=== PATIENT | female | born 1960 | race Caucasian/White ===

== ENCOUNTER 2018-01-25 10:39 | Emergency (ER) | payer MEDICARE ==
[2018-01-25] MEDS ORDERED: METOCLOPRAMIDE HCL INJ/PF 10 MG/2 ML SDV IV ONE (11:07)
[2018-01-25] MEDS ORDERED: DIPHENHYDRAMINE HCL 50 MG/ML VIAL IV ONE (11:08)
--- NOTE | 2018-01-25 11:12 | ER Document Report ---
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 Pt reports that it feels as if she has sinus pressure and also complains of ear pain but she denies any nasal or sinus congestion or discharge. Pt describes her pain as a throbbing pain. She denies any fever but reports that she typically "runs a low temperature" and states that she did not have a fever in the past when she had complications with her LOAN EXAMINER shunt about 2 years ago. I have greeted and performed a rapid initial assessment of the patient. A comprehensive ED assessment and evaluation of the patient, analysis of test results, and completion of the medical decision making process will be conducted by additional ED providers. Physical Exam: General: Alert, appears well. HEENT: Normocephalic. Atraumatic. TTP to frontal and maxillary sinuses. Neck: Supple. Cardiovascular: RRR Respiratory: Coughing during exam. Lungs are clear. Abdominal: No distension. Extremities: Moves all four extremities. Neurological: Normal cognition. AAOx4. Normal speech. Psychological: Normal affect. Normal Mood. Skin: Warm. Dry. Normal color. TRAVEL OUTSIDE OF THE [place] IN LAST 30 DAYS: No - Related Data Allergies/Adverse Reactions: promethazine [From Phenergan] Allergy (Verified 01/25/18 10:42) diphenhydramine [From Benadryl] Adverse Reaction (Verified 01/25/18 12:36) Physical Exam - Vital signs Vitals: Temp Pulse Resp BP Pulse Ox 98.0 F 100 18 109/71 97 01/25/18 10:47 01/25/18 10:47 01/25/18 10:47 01/25/18 10:47 01/25/18 10:47 Course - Vital Signs Vital signs: Temp Pulse Resp BP Pulse Ox 98.3 F 88 18 138/87 H 95 01/25/18 14:30 01/25/18 14:30 01/25/18 14:30 01/25/18 14:30 01/25/18 14:30 - Laboratory Result Diagrams: 01/25/18 11:38 01/25/18 11:38 Laboratory results interpreted by me: 01/25/18 11:38 Sodium 147.2 H Chloride 108 H Glucose 126 H Doctor's Discharge - Discharge Clinical Impression: Headache, Sinusitis Condition: Good Disposition: HOME, SELF-CARE Instructions: Antinausea Medication ([facility]), Headache ([facility]), Pain Medication Injection ([facility]), Toradol Injection ([facility]) Additional Instructions: Follow up with your physician tomorrow for further care or return to the ED IMMEDIATELY if symptoms worsen or new concerns occur. If you cannot afford to follow up with your primary care physician a list of low cost clinics have been provided at the end of your discharge papers as well. Prescriptions: Amox Tr/Potassium Clavulanate [Augmentin 875-125 Tablet] 1 tab PO BID 10 Days # 20 tablet Scribe Documentation - Scribe Written by Radha:: Radha Thompson 01/25/18 [id number] acting as scribe for :: [employer]
[2018-01-25 11:54] LABS: ABSOLUTE EOSINOPHILS # (AUTO) 0.2 10^3/uL (0.0-0.6); ABSOLUTE LYMPHOCYTES (AUTO) 1.1 10^3/uL (0.5-4.7); ABSOLUTE MONOCYTES (AUTO) 0.2 10^3/uL (0.1-1.4); BASOPHILS % (AUTO) 0.5 % (0-2); EOSINOPHILS % (AUTO) 2.3 % (0-6); HEMATOCRIT 41.5 % (36.0-47.0); MEAN CORPUSCULAR HEMOGLOBIN 27.9 pg (27.0-33.4); MEAN CORPUSCULAR HGB CONC 33.9 g/dL (32.0-36.0); MEAN CORPUSCULAR VOLUME 82 fl (80-97); MONOCYTES % (AUTO) 3.4 % (3-13); PLATELET COUNT 151 10^3/uL (150-450); RED BLOOD COUNT 5.04 10^6/uL (3.72-5.28); RED CELL DISTRIBUTION WIDTH 13.7 % (11.5-14.0); SEGMENTED NEUTROPHILS % (AUTO) 76.8 % (42-78); TOTAL CELLS COUNTED % (AUTO) 100 %; WHITE BLOOD COUNT 6.6 10^3/uL (4.0-10.5)
[2018-01-25] MEDS ORDERED: METOCLOPRAMIDE HCL INJ/PF 10 MG/2 ML SDV IM ONE (11:55)
[2018-01-25] MEDS ORDERED: DIPHENHYDRAMINE HCL 50 MG/ML VIAL IM ONE (11:56)
--- NOTE | 2018-01-25 12:16 | RADIOLOGY REPORT (SQ) ---
EXAM DESCRIPTION: SHUNTOGRAM SERIES COMPLETED DATE/TIME: 01/25/2018 12:07 pm COMPARISON: CT brain 01/25/2018 TECHNIQUE: AP skull, cervical spine, and chest films LIMITATIONS: None. FINDINGS: AP skull and cervical films demonstrate right-sided ventriculopleural shunt tubing which i s intact. AP chest film shows that the shunt tubing enters the pleural space on the right. No pneumothorax. N o acute infiltrates. No pleural effusion. Cardiac silhouette size, leo unremarkable. IMPRESSION: Intact right-sided ventriculopleural shunt tubing No acute infiltrates TECHNICAL DOCUMENTATION: JOB ID: [id number]- All Rights Reserved REASON FOR STUDY: headache headache neck pain for 1 week Reading location - IP/workstation name: [email or web address]
[2018-01-25 12:17] LABS: ALANINE AMINOTRANSFERASE 23 U/L (9-52); ALBUMIN 4.9 g/dL (3.5-5.0); ALKALINE PHOSPHATASE 88 U/L (38-126); ANION GAP 14 (5-19); ASPARTATE AMINO TRANSFERASE 21 U/L (14-36); BILIRUBIN,DIRECT 0.3 mg/dL (0.0-0.4); BILIRUBIN,TOTAL 0.5 mg/dL (0.2-1.3); BLOOD UREA NITROGEN 12 mg/dL (7-20); CALCIUM 9.6 mg/dL (8.4-10.2); CARBON DIOXIDE 25 mmol/L (22-30); CHLORIDE 108 mmol/L (98-107); GLUCOSE 126 mg/dL (75-110); POTASSIUM 3.8 mmol/L (3.6-5.0); SODIUM 147.2 mmol/L (137-145); TOTAL PROTEIN 7.9 g/dL (6.3-8.2)
--- NOTE | 2018-01-25 12:35 | ER Document Report ---
ED General - General Chief Complaint: Headache Stated Complaint: HEADACHE Time Seen by Provider: 01/25/18 11:07 Mode of Arrival: Ambulatory Notes: Upon my arrival into the room to examine the patient and she is on the phone and refusing to get off. 57 y.o. female with hypertension, hyperlipidemia, asthma and a CLIENT SERVICE AND CONSULTING MANAGER shunt presents to the ED with a frontal and periorbital LARES of onset yesterday. Pt reports that it feels as if it is a sinus pressure and also complains of ear pain. Patient has had nasal drainage, denies congestion. Pt describes her pain as a throbbing pain. She denies any fever but reports that she typically "runs a low temperature" and states that she did not have a fever in the past when she had complications with her CLIENT SERVICE AND CONSULTING MANAGER shunt about 2 years ago. TRAVEL OUTSIDE OF THE [place] IN LAST 30 DAYS: No - HPI Onset: Yesterday Onset/Duration: Constant Quality of pain: Fullness, Throbbing Severity: Moderate Pain Level: 2 Associated symptoms: Nonproductive cough, Headache, Sinus pain/drainage. denies : Chest pain, Fever, Nausea, Vomiting Exacerbated by: Movement Relieved by: Denies Similar symptoms previously: Yes Recently seen / treated by doctor: Yes - Related Data Allergies/Adverse Reactions: promethazine [From Phenergan] Allergy (Verified 01/25/18 10:42) diphenhydramine [From Benadryl] Adverse Reaction (Verified 01/25/18 12:36) Past Medical History - General Information source: Patient - Social History Smoking Status: Never Smoker Chew tobacco use (# tins/day): No Frequency of alcohol use: None Drug Abuse: None Family History: Reviewed & Not Pertinent Patient has suicidal ideation: No Patient has homicidal ideation: No - Past Medical History Cardiac Medical History: Reports: Hx Hypercholesterolemia, Hx Hypertension Pulmonary Medical History: Reports: Hx Asthma Renal/ Medical History: Denies: Hx Peritoneal Dialysis Past Surgical History: Reports: Hx Hysterectomy, Hx Orthopedic Surgery - left knee Review of Systems - Review of Systems Notes: REVIEW OF SYSTEMS: CONSTITUTIONAL : Denies fever, chills, or sweats. Denies recent illness. Denies weight loss, recent hospitalizations. EENT: Denies visual changes, eye pain. Denies sore throat, oral lesions, difficulty swallowing. CARDIOVASCULAR: Denies chest pain. Denies palpitations. Denies lower extremity edema. RESPIRATORY: Denies cough, cold, or chest congestion. Denies shortness of breath, wheezing. GASTROINTESTINAL: Denies abdominal pain or distention. Denies nausea, vomiting , or diarrhea. Denies blood in vomitus, stools, or per rectum. Denies black, tarry stools. Denies constipation. GENITOURINARY: Denies difficulty urinating, painful urination, frequency, blood in urine, or vaginal discharge. MUSCULOSKELETAL: Denies back or neck pain or stiffness. Denies joint pain or swelling. SKIN: Denies rash, lesions or sores. HEMATOLOGIC : Denies easy bruising or bleeding. LYMPHATIC: Denies swollen glands. NEUROLOGICAL: Denies confusion or altered mental status. Denies passing out or loss of consciousness. Denies dizziness or lightheadedness. Denies weakness or paralysis. Denies problems difficulty with ambulation, slurred speech. Denies sensory loss, numbness, or tingling. Denies seizures. PSYCHIATRIC: Denies anxiety or stress. Denies depression, suicidal ideation, or homicidal ideation. Denies visual or auditory hallucinations. Physical Exam - Vital signs Vitals: Temp Pulse Resp BP Pulse Ox 98.0 F 100 18 109/71 97 01/25/18 10:47 01/25/18 10:47 01/25/18 10:47 01/25/18 10:47 01/25/18 10:47 - Notes Notes: PHYSICAL EXAMINATION: GENERAL: Well-appearing, well-nourished and in no acute distress. HEAD: Atraumatic, normocephalic. EYES: Pupils equal round and reactive to light, extraocular movements intact, conjunctiva are normal. ENT: Nares patent, oropharynx clear without exudates. Moist mucous membranes. NECK: Normal range of motion, supple without lymphadenopathy LUNGS: Breath sounds clear to auscultation bilaterally and equal. No wheezes rales or rhonchi. HEART: Regular rate and rhythm without murmurs ABDOMEN: Soft, nontender, nondistended abdomen. No guarding, no rebound. No masses appreciated. Female : deferred Musculoskeletal: Normal range of motion, no pitting or edema. No cyanosis. NEUROLOGICAL: Cranial nerves grossly intact. Normal speech, normal gait. Normal sensory, motor exams PSYCH: Normal mood, normal affect. SKIN: Warm, Dry, normal turgor, no rashes or lesions noted. Course - Re-evaluation Re-evalutation: 01/25/18 13:11 Laboratory 01/25/18 01/25/18 11:38 11:38 WBC 6.6 RBC 5.04 Hgb 14.0 Hct 41.5 MCV 82 MCH 27.9 MCHC 33.9 RDW 13.7 Plt Count 151 Seg Neutrophils % 76.8 Lymphocytes % 17.0 Monocytes % 3.4 Eosinophils % 2.3 Basophils % 0.5 Absolute Neutrophils 5.0 Absolute Lymphocytes 1.1 Absolute Monocytes 0.2 Absolute Eosinophils 0.2 Absolute Basophils 0.0 Sodium 147.2 H Potassium 3.8 Chloride 108 H Carbon Dioxide 25 Anion Gap 14 BUN 12 Creatinine 0.78 Est GFR ( Amer) > 60 Est GFR (Non-Af Amer) > 60 Glucose 126 H Calcium 9.6 Total Bilirubin 0.5 Direct Bilirubin 0.3 Neonat Total Bilirubin Not Reportable Neonat Direct Bilirubin Not Reportable Neonat Indirect Bili Not Reportable AST 21 ALT 23 Alkaline Phosphatase 88 Total Protein 7.9 Albumin 4.9 Shuntogram 01/25/18 10:45 IMPRESSION: Intact right-sided ventriculopleural shunt tubing No acute infiltrates Head CT 01/25/18 10:51 IMPRESSION: No acute findings EVIDENCE OF ACUTE STROKE: NO. 57-year-old female presents with complaint of headache that started 1 day prior to arrival. Patient was seen by myself upon arrival. Vital signs were reviewed. Patient is afebrile, normotensive and not hypoxic. Patient does not appear toxic or dehydrated. They are in no acute distress. Previous medical records and nursing notes reviewed. CT of the head showed no acute process. Shuntogram showed no acute abnormalities. Patient received Reglan, Toradol, prednisone during her ED course. 01/25/18 13:12 01/25/18 14:08 On reevaluation patient states her headache has improved and is requesting discharge home. Patient provided the opportunity to ask questions, and express concerns. Discharge instructions discussed. Patient is agreeable with discharge home. Return indications explained and discussed with the patient who displays understanding. Patient encouraged to return to the emergency department immediately with any concerns. - Vital Signs Vital signs: Temp Pulse Resp BP Pulse Ox 98.3 F 88 18 138/87 H 95 01/25/18 14:30 01/25/18 14:30 07/04/18 14:30 01/25/18 14:30 01/25/18 14:30 - Laboratory Result Diagrams: 01/25/18 11:38 01/25/18 11:38 Laboratory results interpreted by me: 01/25/18 11:38 Sodium 147.2 H Chloride 108 H Glucose 126 H Discharge - Discharge Clinical Impression: Headache Qualifiers: Headache type: unspecified Headache chronicity pattern: acute headache Intractability: not intractable Qualified Code(s): R51 - Headache Sinusitis Qualifiers: Sinusitis location: frontal Chronicity: acute Recurrence: recurrent Qualified Code(s): J01.11 - Acute recurrent frontal sinusitis Condition: Good Disposition: HOME, SELF-CARE Instructions: Antinausea Medication ([facility]), Headache ([facility]), Pain Medication Injection ([facility]), Toradol Injection ([facility]) Additional Instructions: Follow up with your physician tomorrow for further care or return to the ED IMMEDIATELY if symptoms worsen or new concerns occur. If you cannot afford to follow up with your primary care physician a list of low cost clinics have been provided at the end of your discharge papers as well. Prescriptions: Amox Tr/Potassium Clavulanate [Augmentin 875-125 Tablet] 1 tab PO BID 10 Days # 20 tablet
--- NOTE | 2018-01-25 12:45 | RADIOLOGY REPORT (SQ) ---
EXAM DESCRIPTION: CT HEAD WITHOUT COMPLETED DATE/TIME: 01/25/2018 12:31 pm REASON FOR STUDY: headache, hx of shunt COMPARISON: Plain film shunt series earlier today TECHNIQUE: Axial images acquired through the brain without intravenous contrast. Images reviewed wi th bone, brain and subdural windows. Additional sagittal and coronal reconstructions were generated. Images stored on PACS. All CT scanners at this facility use dose modulation, iterative reconstruction, and/or weight based d osing when appropriate to reduce radiation dose to as low as reasonably achievable (ALARA). [facility]: Dose Right [facility]: CareDose [facility]: Dose Right [facility]: Teradose 4D [facility]: Smart [employer] RADIATION DOSE: CT Rad equipment meets quality standard of care and radiation dose reduction techniq ues were employed. CTDIvol: 53.2 mGy. DLP: 964 mGy-cm. mGy. LIMITATIONS: None. FINDINGS: VENTRICLES: Normal size and contour. The an intraventricular drainage catheter from front al approaches present, the tip of the catheter is near the foramen of Monro. Tubing over the field o f view is intact. CEREBRUM: No masses. No hemorrhage. No midline shift. No evidence for acute infarction. Normal gra y/white matter differentiation. No areas of low density in the white matter. CEREBELLUM: No masses. No hemorrhage. No alteration of density. No evidence for acute infarction. 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 Normal CSF spaces around the cerebellar tonsils and medulla. EXTRAAXIAL SPACES: No fluid collections. No masses. ORBITS AND GLOBE: No intra- or extraconal masses. Normal contour of globe without masses. CALVARIUM: Old occipital craniotomy for decompression of the foramen magnum. PARANASAL SINUSES: No fluid or mucosal thickening. SOFT TISSUES: No mass or hematoma. OTHER: No other significant finding. IMPRESSION: No acute findings EVIDENCE OF ACUTE STROKE: NO. COMMENT: Quality ID # [id number]: Final reports with documentation of one or more dose reduction techniques (e.g., Automated exposure control, adjustment of the mA and/or kV according to patient size, use of iterative reconstruction technique) TECHNICAL DOCUMENTATION: JOB ID: [id number] [employer]- All Rights Reserved Reading location - IP/workstation name: [email or web address]
[2018-01-25] MEDS ORDERED: LORAZEPAM 1 MG TABLET PO ONE (13:08)
[2018-01-25] MEDS ORDERED: KETOROLAC TROMETHAMINE 60 MG/2 ML SDV IM ONE (13:08)
[2018-01-25] MEDS ORDERED: PSEUDOEPHEDRINE HCL 30 MG TABLET PO ONE (13:08)
[2018-01-25] MEDS ORDERED: PREDNISONE 20 MG TABLET PO ONE (13:08)
[2018-01-25 14:33] VITALS: BP 138/87
== END 2018-01-25 14:33 | disposition home or self-care (01) ==
LOC: EDBD → ER 10:39
DX: J01.11 Acute recurrent frontal sinusitis (principal); R51 Headache; H92.09 Otalgia, unspecified ear; J34.89 Other specified disorders of nose and nasal sinuses; I10 Essential (primary) hypertension; J45.909 Unspecified asthma, uncomplicated; Z98.2 Presence of cerebrospinal fluid drainage device; Z88.8 Allergy status to other drugs, medicaments and biological substances
CPT/HCPCS: 99284; 96372; 36415; 85025; 80053; 75809; 70450; J1885; J2765; A9270; J1200; J7512

== ENCOUNTER 2018-12-22 13:05 | Emergency (ER) | payer MEDICARE ==
--- NOTE | 2018-12-22 13:51 | ER Document Report ---
ED Medical Screen (RME) - General Chief Complaint: Blood Pressure Problem Stated Complaint: HEADACHE, SYDNEEKEY Time Seen by Provider: 12/22/18 13:48 TRAVEL OUTSIDE OF THE [place] IN LAST 30 DAYS: No - HPI Notes: 12/22/18 13:49 Patient is a 58-year-old female with a history of shunt in her head who presents complaining of headache, dizziness, hot flashes over the past couple days. Patient states that she is very fidgety right now as well. She is still eating and drinking without difficulty. She is urinating normally. Denies any fever, head injury, neck pain, changes in vision/speech/mentation/hearing, URI, sore throat, chest pain, palpitations, syncope, cough, shortness of breath, wheeze, dyspnea, abdominal pain, nausea/vomiting/diarrhea, urinary retention, dysuria, hematuria, loss of control of bowel or bladder, numbness/tingling, saddle anesthesia, muscle paralysis/weakness, or rash. I have treated and performed a rapid initial assessment of this patient. A comprehensive ED assessment and evaluation of the patient, analysis of test results and completion of medical decision making process will be conducted by additional ED providers. PHYSICAL EXAMINATION: GENERAL: Well-appearing, well-nourished and in no acute distress. A&Ox4. Answers questions appropriately. HEAD: Atraumatic, normocephalic. Non-tender. EYES: Pupils equal round and reactive to light, extraocular movements intact, sclera anicteric, conjunctiva are normal. No nystagmus. NECK: Normal range of motion, supple without lymphadenopathy. No rigidity/meningismus. No midline tenderness. LUNGS: Breath sounds clear to auscultation bilaterally and equal. No wheezes rales or rhonchi. HEART: Regular rate and rhythm without murmurs, rubs, gallops. Musculoskeletal: Ext's b/l: FROM to passive/active. Strength 5+/5. No deficits noted. No bony tenderness of extremities. Extremities: No cyanosis, clubbing, or edema b/l. Peripheral pulses 2+. Capillary refill less than 2 seconds. NEUROLOGICAL: NIH 0. GCS 15. Cranial nerves grossly intact. Normal speech, normal gait. Normal sensory, motor exams. Reflexes 2+ b/l. ZENAIDA's negative. Pronator drift negative. Heel/serrano, finger/nose wnl. PSYCH: anxious SKIN: Warm, Dry, normal turgor, no rashes or lesions noted. - Related Data Allergies/Adverse Reactions: promethazine [From Phenergan] Allergy (Verified 12/22/18 13:09) diphenhydramine [From Benadryl] Adverse Reaction (Verified 12/22/18 13:09) Past Medical History - Past Medical History Cardiac Medical History: Reports: Hx Hypercholesterolemia, Hx Hypertension Pulmonary Medical History: Reports: Hx Asthma Renal/ Medical History: Denies: Hx Peritoneal Dialysis Past Surgical History: Reports: Hx Hysterectomy, Hx Orthopedic Surgery - left knee Physical Exam - Vital signs Vitals: Temp Pulse Resp BP Pulse Ox 98.3 F 110 H 16 143/95 H 95 12/22/18 13:25 12/22/18 13:25 12/22/18 13:25 12/22/18 13:25 12/22/18 13:25 Course - Vital Signs Vital signs: Temp Pulse Resp BP Pulse Ox 98.3 F 110 H 16 143/95 H 95 12/22/18 13:25 12/22/18 13:25 12/22/18 13:25 12/22/18 13:25 12/22/18 13:25
--- NOTE | 2018-12-22 14:19 | RADIOLOGY REPORT (SQ) ---
EXAM DESCRIPTION: CT HEAD WITHOUT COMPLETED DATE/TIME: 12/22/2018 2:05 pm REASON FOR STUDY: LARES, dizziness COMPARISON: 01/25/2018 TECHNIQUE: Axial images acquired through the brain without intravenous contrast. Images reviewed wi th bone, brain and subdural windows. Additional sagittal and coronal reconstructions were generated. Images stored on PACS. All CT scanners at this facility use dose modulation, iterative reconstruction, and/or weight based d osing when appropriate to reduce radiation dose to as low as reasonably achievable (ALARA). [facility]: Dose Right [facility]: CareDose [facility]: Dose Right [facility]: Teradose 4D [facility]: Smart [employer] RADIATION DOSE: CT Rad equipment meets quality standard of care and radiation dose reduction techniq ues were employed. CTDIvol: 53.2 mGy. DLP: 964 mGy-cm. mGy. LIMITATIONS: None. FINDINGS: VENTRICLES: Normal size and contour. Stable position and appearance of a right frontopari etal approach shunt terminating in the region of the foramen of Monro. The visualized shunt tubing a ppears to be intact. CEREBRUM: No masses. No hemorrhage. No midline shift. No evidence for acute infarction. Normal gra y/white matter differentiation. No areas of low density in the white matter. CEREBELLUM: No masses. No hemorrhage. No alteration of density. No evidence for acute infarction. EXTRAAXIAL SPACES: No fluid collections. No masses. ORBITS AND GLOBE: No intra- or extraconal masses. Normal contour of globe without masses. CALVARIUM: No fracture. Stable surgical changes. PARANASAL SINUSES: No fluid or mucosal thickening. SOFT TISSUES: No mass or hematoma. OTHER: No other significant finding. IMPRESSION: Stable position and appearance of a ventricular shunt without evidence of complication. Stable CT appearance of the brain. EVIDENCE OF ACUTE STROKE: NO. COMMENT: Quality ID # [id number]: Final reports with documentation of one or more dose reduction techniques (e.g., Automated exposure control, adjustment of the mA and/or kV according to patient size, use of iterative reconstruction technique) TECHNICAL DOCUMENTATION: JOB ID: [id number] [employer]- All Rights Reserved Reading location - IP/workstation name: [email or web address]
--- NOTE | 2018-12-22 14:28 | RADIOLOGY REPORT (SQ) ---
EXAM DESCRIPTION: SHUNTOGRAM SERIES COMPLETED DATE/TIME: 12/22/2018 2:15 pm REASON FOR STUDY: LARES, dizziness COMPARISON: 01/25/2018 TECHNIQUE: Frontal radiographs of the calvarium, cervical spine, chest, and abdomen were obtained. LIMITATIONS: None. FINDINGS: Images demonstrate a right-sided ventriculopleural shunt catheter demonstrating stable pos ition and appearance. There is no evidence of shunt discontinuity. No depressed skull fractures are demonstrated. Degenerative changes are seen of the cervical spine. The lungs appear clear without pneumothorax or large pleural effusion. The cardiomediastinal silhou ette appears normal. Gas and stool are seen throughout multiple nondilated loops of bowel without ev idence of obstruction. The visceral in soft tissue shadows appear unremarkable. The remaining bony and soft tissue structures appear normal. IMPRESSION: Right-sided ventriculopleural shunt demonstrating stable position in without evidence of complication. TECHNICAL DOCUMENTATION: JOB ID: [id number] [email or web address]- All Rights Reserved Reading location - IP/workstation name: [email or web address]
[2018-12-22 16:13] LABS: ABSOLUTE EOSINOPHILS # (AUTO) 0.1 10^3/uL (0.0-0.6); ABSOLUTE LYMPHOCYTES (AUTO) 1.1 10^3/uL (0.5-4.7); ABSOLUTE MONOCYTES (AUTO) 0.2 10^3/uL (0.1-1.4); ABSOLUTE NEUT (AUTO) 3.5 10^3/uL (1.7-8.2); BASOPHILS % (AUTO) 0.2 % (0-2); EOSINOPHILS % (AUTO) 2.1 % (0-6); HEMATOCRIT 42.4 % (36.0-47.0); HEMOGLOBIN 14.1 g/dL (12.0-15.5); LYMPHOCYTES % (AUTO) 22.8 % (13-45); MEAN CORPUSCULAR HEMOGLOBIN 28.1 pg (27.0-33.4); MEAN CORPUSCULAR HGB CONC 33.3 g/dL (32.0-36.0); MEAN CORPUSCULAR VOLUME 84 fl (80-97); PLATELET COUNT 145 10^3/uL (150-450); RED BLOOD COUNT 5.03 10^6/uL (3.72-5.28); RED CELL DISTRIBUTION WIDTH 13.8 % (11.5-14.0); SEGMENTED NEUTROPHILS % (AUTO) 70.9 % (42-78); TOTAL CELLS COUNTED % (AUTO) 100 %; WHITE BLOOD COUNT 4.9 10^3/uL (4.0-10.5)
[2018-12-22 16:24] LABS: APPEARANCE,URINE SLIGHTLY-CLOUDY; BILIRUBIN,URINE NEGATIVE (NEGATIVE); COLOR,URINE YELLOW; GLUCOSE, URINE NEGATIVE (NEGATIVE); KETONES,URINE NEGATIVE (NEGATIVE); LEUKOCYTE ESTERASE,URINE SMALL (NEGATIVE); NITRITE,URINE NEGATIVE (NEGATIVE); PROTEIN,URINE NEGATIVE (NEGATIVE); URINE SPECIFIC GRAVITY 1.026; UROBILINOGEN,URINE NEGATIVE mg/dL (<2.0)
[2018-12-22 16:33] LABS: INTERNATIONAL RATION (INR) 0.92; PARTIAL THROMBOPLASTIN TIME 26.7 SEC (23.5-35.8); PROTHROMBIN TIME 12.8 SEC (11.4-15.4)
[2018-12-22 16:34] LABS: ALANINE AMINOTRANSFERASE 21 U/L (9-52); ALBUMIN 4.9 g/dL (3.5-5.0); ALKALINE PHOSPHATASE 87 U/L (38-126); ANION GAP 13 (5-19); ASPARTATE AMINO TRANSFERASE 19 U/L (14-36); BILIRUBIN,DIRECT 0.3 mg/dL (0.0-0.4); BLOOD UREA NITROGEN 15 mg/dL (7-20); CALCIUM 9.5 mg/dL (8.4-10.2); CARBON DIOXIDE 30 mmol/L (22-30); CHLORIDE 106 mmol/L (98-107); GLUCOSE 100 mg/dL (75-110); POTASSIUM 3.9 mmol/L (3.6-5.0); SODIUM 149.3 mmol/L (137-145); TOTAL PROTEIN 7.8 g/dL (6.3-8.2)
[2018-12-22] MEDS ORDERED: BUTALB/ACETAMINOPHEN/CAFFEINE 1 TAB EACH PO ONE (19:33)
--- NOTE | 2018-12-22 19:35 | ER Document Report ---
ED General - General Chief Complaint: Blood Pressure Problem Stated Complaint: HEADACHE, MAURO Time Seen by Provider: 12/22/18 13:48 Primary Care Provider: PAT GONSALVES MD [ACTIVE STAFF] - Follow up in 3-5 days (local primary care. ) Notes: Patient is a 58-year-old female that presents to the emergency department for chief complaint of elevated blood pressure and headaches. Patient states she has been having a headache on and off for the past 3 days, stiff and that her typical headaches, she is had some mild lightheadedness, seems to be worse with walking and improved with lying down. She has a MANAGER LIGHTING shunt, but these headaches do not seem related to her typical headaches. It is mainly at the back of her head. She denies any numbness, tingling or weakness in any extremity, denies any slurred speech, or changes in her vision. Denies any vertiginous symptoms. She denies any nausea, vomiting, chest pain or shortness of breath associated with this. She currently rates her headache as a 3 out of 10 describes as a constant ache. Past Medical History: Hypertension, hyperlipidemia, fibromyalgia Past Surgical History: MANAGER LIGHTING shunt placement and Chiari malformation surgery Social History: Denies tobacco, alcohol or illicit drug use. Family History: Reviewed and noncontributory for presenting illness Allergies: Reviewed, see documented allergy list. REVIEW OF SYSTEMS: Other than noted above, the 12 point review of systems was reviewed with the patient and were negative, all pertinent findings are included in the HPI. PHYSICAL EXAMINATION: Vital signs reviewed, nursing noted reviewed. GENERAL: Well-appearing, well-nourished and in no acute distress. HEAD: Atraumatic, normocephalic. EYES: Eyes appear normal, extraocular movements intact, sclera anicteric, conjunctiva are normal. ENT: nares patent, oropharynx clear without exudates. Moist mucous membranes. NECK: Normal range of motion, supple without lymphadenopathy LUNGS: Breath sounds clear to auscultation bilaterally and equal. No wheezes rales or rhonchi. HEART: Regular rate and rhythm without murmurs ABDOMEN: Soft, nontender, normoactive bowel sounds. No rebound, guarding, or rigidity. No masses appreciated. EXTREMITIES: Nontender, good range of motion, no pitting or edema. NEUROLOGICAL: No focal neurological deficits. Moves all extremities spontaneously Motor and sensory grossly intact on exam. PSYCH: Normal mood, normal affect. SKIN: Warm, Dry, normal turgor, no rashes or lesions noted on exposed skin TRAVEL OUTSIDE OF THE [place] IN LAST 30 DAYS: No - Related Data Allergies/Adverse Reactions: promethazine [From Phenergan] Allergy (Verified 12/22/18 13:09) diphenhydramine [From Benadryl] Adverse Reaction (Verified 12/22/18 13:09) Past Medical History - Social History Smoking Status: Unknown if Ever Smoked Chew tobacco use (# tins/day): No Frequency of alcohol use: None Drug Abuse: None Family History: Reviewed & Not Pertinent Patient has suicidal ideation: No Patient has homicidal ideation: No - Past Medical History Cardiac Medical History: Reports: Hx Hypercholesterolemia, Hx Hypertension Pulmonary Medical History: Reports: Hx Asthma Renal/ Medical History: Denies: Hx Peritoneal Dialysis Past Surgical History: Reports: Hx Hysterectomy, Hx Orthopedic Surgery - left knee Physical Exam - Vital signs Vitals: Temp Pulse Resp BP Pulse Ox 98.3 F 110 H 16 143/95 H 95 12/22/18 13:25 12/22/18 13:25 12/22/18 13:25 12/22/18 13:25 12/22/18 13:25 Course - Re-evaluation Re-evalutation: Patient seen and examined vital signs reviewed. Laboratory data and/or imaging were ordered as appropriate for the patient's presenting symptoms and complaint, with consideration of any critical or life threatening conditions that may be associated with their obtained history and exam as noted above. Patient was treated with Fioricet for her headache, patient did not want any IV medications. Results were reviewed when available and demonstrated normal shunt series, blood work was unremarkable, blood pressure was somewhat elevated, but not significantly. The patient was re-evaluated and was stable, and improved Evaluation was most consistent with headache, nonspecific, lightheadedness, advised follow-up with her primary care physician. Results were discussed with the patient at this point, after careful consideration I feel that that patient can be discharged from the emergency department, the patient was educated treatments and reasons to return to the emergency department based on their presumed diagnosis as noted above, they were advised to followup with a primary care physician in 2-3 days. Patient was agreeable to plan of care. *Note is created using voice recognition software and may contain spelling, syntax or grammatical errors. Laboratory 12/22/18 12/22/18 12/22/18 15:55 15:55 15:55 WBC 4.9 RBC 5.03 Hgb 14.1 Hct 42.4 MCV 84 MCH 28.1 MCHC 33.3 RDW 13.8 Plt Count 145 L Seg Neutrophils % 70.9 Lymphocytes % 22.8 Monocytes % 4.0 Eosinophils % 2.1 Basophils % 0.2 Absolute Neutrophils 3.5 Absolute Lymphocytes 1.1 Absolute Monocytes 0.2 Absolute Eosinophils 0.1 Absolute Basophils 0.0 PT 12.8 INR 0.92 APTT 26.7 Sodium 149.3 H Potassium 3.9 Chloride 106 Carbon Dioxide 30 Anion Gap 13 BUN 15 Creatinine 0.77 Est GFR ( Amer) > 60 Est GFR (Non-Af Amer) > 60 Glucose 100 Calcium 9.5 Magnesium 2.1 Total Bilirubin 1.0 Direct Bilirubin 0.3 Neonat Total Bilirubin Not Reportable Neonat Direct Bilirubin Not Reportable Neonat Indirect Bili Not Reportable AST 19 ALT 21 Alkaline Phosphatase 87 Total Protein 7.8 Albumin 4.9 TSH Urine Color Urine Appearance Urine pH Ur Specific [place] Urine Protein Urine Glucose (UA) Urine Ketones Urine Blood Urine Nitrite Urine Bilirubin Urine Urobilinogen Ur Leukocyte Esterase Urine WBC (Auto) Urine RBC (Auto) U Hyaline Cast (Auto) Urine Bacteria (Auto) Squamous Epi Cells Auto Urine Mucus (Auto) Urine Ascorbic Acid 12/22/18 12/22/18 15:55 15:55 WBC RBC Hgb Hct MCV MCH MCHC RDW Plt Count Seg Neutrophils % Lymphocytes % Monocytes % Eosinophils % Basophils % Absolute Neutrophils Absolute Lymphocytes Absolute Monocytes Absolute Eosinophils Absolute Basophils PT INR APTT Sodium Potassium Chloride Carbon Dioxide Anion Gap BUN Creatinine Est GFR ( Amer) Est GFR (Non-Af Amer) Glucose Calcium Magnesium Total Bilirubin Direct Bilirubin Neonat Total Bilirubin Neonat Direct Bilirubin Neonat Indirect Bili AST ALT Alkaline Phosphatase Total Protein Albumin TSH 0.90 Urine Color YELLOW Urine Appearance SLIGHTLY-CLOUDY Urine pH 5.0 Ur Specific [place] 1.026 Urine Protein NEGATIVE Urine Glucose (UA) NEGATIVE Urine Ketones NEGATIVE Urine Blood NEGATIVE Urine Nitrite NEGATIVE Urine Bilirubin NEGATIVE Urine Urobilinogen NEGATIVE Ur Leukocyte Esterase SMALL H Urine WBC (Auto) 6 Urine RBC (Auto) 1 U Hyaline Cast (Auto) 4 Urine Bacteria (Auto) TRACE Squamous Epi Cells Auto <1 Urine Mucus (Auto) OCC Urine Ascorbic Acid NEGATIVE Head CT 12/22/18 13:48 IMPRESSION: Stable position and appearance of a ventricular shunt without evidence of complication. Stable CT appearance of the brain. EVIDENCE OF ACUTE STROKE: NO. Shuntogram 12/22/18 13:48 IMPRESSION: Right-sided ventriculopleural shunt demonstrating stable position in without evidence of complication. - Vital Signs Vital signs: Temp Pulse Resp BP Pulse Ox 97.6 F 84 16 159/84 H 100 12/22/18 19:49 12/22/18 19:49 12/22/18 19:49 12/22/18 19:49 12/22/18 19:49 - Laboratory Result Diagrams: 12/22/18 15:55 12/22/18 15:55 Laboratory results interpreted by me: 12/22/18 12/22/18 12/22/18 15:55 15:55 15:55 Plt Count 145 L Sodium 149.3 H Ur Leukocyte Esterase SMALL H Discharge - Discharge Clinical Impression: Lightheadedness Headache Qualifiers: Headache type: unspecified Headache chronicity pattern: unspecified pattern Intractability: not intractable Qualified Code(s): R51 - Headache Condition: Stable Disposition: HOME, SELF-CARE Instructions: Headache ([facility]) Additional Instructions: Please follow-up with your primary care physician regarding elevated blood pre ssure. You have been prescribed headache medication, that you can take every 6 hours if needed to help with headache. Do not drive while taking this medication however. Prescriptions: Butalb/Acetaminophen/Caffeine [Fioricet (50-325-40 mg) Tablet] 1 tab PO Q6H PRN #12 tab PRN Reason: headache Referrals: PAT GONSALVES MD [ACTIVE STAFF] - Follow up in 3-5 days (local primary care. )
[2018-12-22 20:00] VITALS: BP 159/84
== END 2018-12-22 19:49 | disposition home or self-care (01) ==
LOC: ER 13:05
DX: R51 Headache (principal); I10 Essential (primary) hypertension; R42 Dizziness and giddiness; Z98.2 Presence of cerebrospinal fluid drainage device; J45.909 Unspecified asthma, uncomplicated; Z88.8 Allergy status to other drugs, medicaments and biological substances
CPT/HCPCS: 99284; 36415; 83735; 84443; 85025; 85610; 85730; 80053; 81001; 75809; 70450; A9270; J3490